=== PATIENT | female | born 1950 | race Caucasian/White ===

== ENCOUNTER 2024-07-01 12:31 | Inpatient (IN) | payer MEDICARE, OTHER ==
[~2024-07-01] VITALS: Ht 162.6 cm; Wt 56.7 kg
[2024-07-01] MEDS ORDERED: CALC-1276 PO (13:28)
[2024-07-01] MEDS ORDERED: FLUT16SP NS (13:28)
[2024-07-01] MEDS ORDERED: FLUT1BLS4 IH (13:28)
[2024-07-01] MEDS ORDERED: MONT10TA33 PO (13:28)
[2024-07-01] MEDS ORDERED: GABA300C PO (13:28)
[2024-07-01] MEDS ORDERED: LAMO100T17 PO ×2 (13:28→19:20)
[2024-07-01] MEDS ORDERED: DULO60CA45 PO (13:28)
[2024-07-01] MEDS ORDERED: DOCU100C36 PO (13:28)
[2024-07-01] MEDS ORDERED: OXYB10TA30 PO (13:28)
[2024-07-01] MEDS ORDERED: CALC1POW43 PO (13:28)
[2024-07-01] MEDS ORDERED: MULT-1045 PO (13:28)
[2024-07-01] MEDS ORDERED: ASPI-495 PO (13:28)
[2024-07-01] MEDS ORDERED: FOLI1TAB94 PO (13:28)
[2024-07-01] MEDS ORDERED: POLYVINYL ALCOHOL OPHT DROPS 15 ML BOTTLE ONE (13:31)
[2024-07-01] MEDS: POLYVINYL ALCOHOL OPHT DROPS 15 ML BOTTLE OP ONE (13:32)
[2024-07-01 13:44] LABS: BASOPHILS # (AUTO) 0.1 K/UL (0.0-0.2); BASOPHILS % (AUTO) 1.2 % (0.0-2.0); EOSINOPHILS # (AUTO) 0.3 K/uL (0.0-0.7); EOSINOPHILS % (AUTO) 4.7 % (0.0-7.0); HEMATOCRIT 38.1 % (31.2-41.9); HEMOGLOBIN 12.8 g/dL (10.9-14.3); LYMPHOCYTES # (AUTO) 1.3 K/uL (0.8-4.8); LYMPHOCYTES % (AUTO) 23.5 % (20.5-51.5); MEAN CORPUSCULAR HEMOGLOBIN 30.2 uug (24.7-32.8); MEAN CORPUSCULAR HGB CONC 34 g/dL (32.3-35.6); MEAN CORPUSCULAR VOLUME 90.3 fL (75.5-95.3); MONOCYTES # (AUTO) 0.3 K/uL (0.1-1.30); MONOCYTES % (AUTO) 6.2 % (0.0-11.0); NEUTROPHILS # (AUTO) 3.6 K/uL (1.8-8.9); NEUTROPHILS % (AUTO) 64.4 % (38.5-71.5); PLATELET COUNT (AUTO) 276 K/uL (179-408); RED BLOOD CELL COUNT(AUTO) 4.22 MIL/uL (3.63-4.92); RED CELL DISTRIBUTION WIDTH 14.8 % (12.3-17.7); WHITE BLOOD COUNT (AUTO) 5.6 K/uL (3.8-11.8)
[2024-07-01 13:48] LABS: DIFFERENTIAL COMMENT 1
[2024-07-01] MEDS ORDERED: NALO4SPR NS (13:51)
[2024-07-01] MEDS ORDERED: CETI10CA8 PO (13:51)
[2024-07-01] MEDS ORDERED: PANT20TA2 PO (13:51)
[2024-07-01] MEDS ORDERED: SIME40DR69 PO (13:51)
[2024-07-01] MEDS ORDERED: PROP10TA10 PO (13:51)
[2024-07-01] MEDS ORDERED: DICL100G31 TP ×2 (13:51→19:20)
[2024-07-01] MEDS ORDERED: MAGN400O6 PO (13:51)
[2024-07-01] MEDS ORDERED: RAME8TAB15 PO (13:51)
[2024-07-01] MEDS ORDERED: ROPI2TAB26 PO (13:51)
[2024-07-01] MEDS ORDERED: ACET325T53 PO ×2 (13:51→19:20)
[2024-07-01] MEDS ORDERED: ICOS1CAP PO (13:51)
[2024-07-01] MEDS ORDERED: QUET50TA PO (13:51)
[2024-07-01] MEDS ORDERED: PROP10DR15 OP (13:51)
[2024-07-01] MEDS ORDERED: QUET25TA PO (13:51)
[2024-07-01] MEDS ORDERED: CHOL-35 PO (13:51)
[2024-07-01] MEDS ORDERED: HYDR-3980 PO (13:51)
[2024-07-01 13:52] LABS: CALCIUM 8.5 mg/dL (8.5-10.1); CARBON DIOXIDE 29 mmol/L (21-32); CHLORIDE 103 mmol/L (98-107); CREATININE 0.9 mg/dL (0.6-1.3); GLUCOSE 104 mg/dL (74-106); POTASSIUM 4.8 mmol/L (3.5-5.1); SODIUM SERUM 137 mmol/L (136-145); UREA NITROGEN, BLOOD 9 mg/dL (7-18)
[2024-07-01 14:05] LABS: ALANINE AMINOTRANSFERASE 17 U/L (14-59); ALBUMIN 3.4 g/dL (3.4-5.0); ALKALINE PHOSPHATASE 89 U/L (50-136); ASPARTATE AMINOTRANSFERASE 15 U/L (15-37); BILIRUBIN,DIRECT 0.1 mg/dL (0.0-0.2); BILIRUBIN,TOTAL 0.5 mg/dL (0.2-1.0); NT-PRO BNP 144 pg/mL (0-125); TOTAL PROTEIN, SERUM 6.6 g/dL (6.4-8.2)
[2024-07-01 14:52] LABS: *BILIRUBIN,URIN NEGATIVE (NEGATIVE); *BLOOD, URINE NEGATIVE (NEGATIVE); *CLARITY,URINE CLEAR (CLEAR); *COLOR,URINE YELLOW (YELLOW); *KETONES,URINE NEGATIVE (NEGATIVE); *PROTEIN,URINE NEGATIVE (NEGATIVE); *UROBILINOGEN,URINE 0.2 E.U./dl (NORMAL); LEUKOCYTE ESTERASE ,URINE 1+ (NEGATIVE); NITRITE, URINE POSITIVE (NEGATIVE); UGLUCOSE NEGATIVE (NEGATIVE)
[2024-07-01] MEDS: ALBUTEROL SULFATE 2.5 MG/3 ML NEBU NEB ONE (14:54)
[2024-07-01] MEDS: IPRATROPIUM BROMIDE 0.5 MG/2.5 ML NEBU NEB ONE (14:54)
[2024-07-01 14:57] VITALS: O2SAT 96
[2024-07-01] MEDS ORDERED: IPRATROPIUM BROMIDE 0.5 MG/2.5 ML NEBU ONE (14:57)
[2024-07-01] MEDS ORDERED: ALBUTEROL SULFATE 2.5 MG/3 ML NEBU ONE (14:57)
[2024-07-01 15:03] LABS: BACTERIA,URINE MANY /HPF (NONE SEEN); RBC,URINE 0-3 /HPF (0-3); SQUAMOUS EPITHELIAL CELL,UR MODERATE /HPF (NONE SEEN)
[2024-07-01 15:12] VITALS: O2SAT 99
[2024-07-01] MEDS ORDERED: methylPREDNISolone SOD SUCC 125 MG/2 ML VIAL ONE (15:14)
[2024-07-01] MEDS: methylPREDNISolone SOD SUCC 125 MG/2 ML VIAL IV ONE (15:18)
[2024-07-01] MEDS ORDERED: ONDANSETRON 4 MG/2 ML VIAL ONE (15:23)
[2024-07-01] MEDS ORDERED: MORPHINE SULFATE 4 MG/1 ML DISP.SYRIN ONE (15:24)
[2024-07-01] MEDS: MORPHINE SULFATE 4 MG/1 ML DISP.SYRIN IV ONE (15:31)
[2024-07-01] MEDS: ONDANSETRON 4 MG/2 ML VIAL IV ONE (15:35)
[2024-07-01 18:11] VITALS: BP 124/64; TEMP 98.4; O2SAT 95
[2024-07-01 19:00] VITALS: BP 132/70; TEMP 98.3; O2SAT 95
[2024-07-01] MEDS ORDERED: CETI10TA18 PO (19:20)
[2024-07-01] MEDS ORDERED: DULO60CA64 PO (19:20)
[2024-07-01] MEDS ORDERED: MAG30ORA PO (19:55)
[2024-07-01] MEDS ORDERED: ALBUTEROL SULFATE 2.5 MG/ 0.5 ML NEBU NEB PRN (20:15)
[2024-07-01] MEDS ORDERED: MAGNESIUM HYDROXIDE 30 ML LIQUID UDC PO PRN (20:15)
[2024-07-01] MEDS ORDERED: IPRATROPIUM BROMIDE 0.5 MG/2.5 ML NEBU NEB PRN (20:15)
[2024-07-01] MEDS ORDERED: ONDANSETRON 4 MG/2 ML VIAL IV PRN (20:15)
[2024-07-01] MEDS ORDERED: CEFTRIAXONE /D5W 50ML IVPB **ER PYXIS IV ONE (20:37)
[2024-07-01] MEDS: MORPHINE SULFATE 2 MG/1 ML DISP.SYRIN IV PRN (20:46)
[2024-07-01] MEDS: CEFTRIAXONE 1 G in IV DEXTROSE 5% 50 ML IV SCH (20:46)
[2024-07-01] MEDS: DOCUSATE SODIUM 250 MG CAPSULE PO SCH (20:46)
[2024-07-01] MEDS: ENOXAPARIN SODIUM 40 MG/0.4 ML DISP.SYRIN SQ SCH (20:53)
[2024-07-01] MEDS: ACETAMINOPHEN 325 MG TABLET PO PRN (21:40)
[2024-07-01] MEDS: TEMAZEPAM 15 MG CAPSULE PO PRN (21:40)
[2024-07-02] VITALS (8 sets, daily range): BP systolic 123–158; BP diastolic 49–85; TEMP 97.9–98.4; O2SAT 94–99
[2024-07-02] MEDS: MAG HYDROX/AL HYDROX/SIMETH 30 ML LIQUID UDC PO PRN (04:44)
[2024-07-02] MEDS ORDERED: ALBUTEROL SULFATE 2.5 MG/3 ML NEBU NEB PRN (05:45)
[2024-07-02] MEDS: PANTOPRAZOLE SODIUM 40 MG TABLET.DR PO SCH (06:40)
[2024-07-02 07:04] LABS: BASOPHILS % (AUTO) 0.3 % (0.0-2.0); HEMATOCRIT 35.3 % (31.2-41.9); HEMOGLOBIN 12.1 g/dL (10.9-14.3); LYMPHOCYTES % (AUTO) 19.4 % (20.5-51.5); MEAN CORPUSCULAR HEMOGLOBIN 30.8 uug (24.7-32.8); MEAN CORPUSCULAR HGB CONC 34 g/dL (32.3-35.6); MEAN CORPUSCULAR VOLUME 89.8 fL (75.5-95.3); MONOCYTES # (AUTO) 0.2 K/uL (0.1-1.30); MONOCYTES % (AUTO) 4.7 % (0.0-11.0); NEUTROPHILS % (AUTO) 75.6 % (38.5-71.5); PLATELET COUNT (AUTO) 263 K/uL (179-408); RED BLOOD CELL COUNT(AUTO) 3.92 MIL/uL (3.63-4.92); RED CELL DISTRIBUTION WIDTH 14.5 % (12.3-17.7); WHITE BLOOD COUNT (AUTO) 5.3 K/uL (3.8-11.8)
[2024-07-02 07:17] LABS: DIFFERENTIAL COMMENT 1
[2024-07-02 07:21] LABS: CARBON DIOXIDE 26 mmol/L (21-32); CHLORIDE 96 mmol/L (98-107); SODIUM SERUM 130 mmol/L (136-145)
[2024-07-02 07:22] LABS: ALANINE AMINOTRANSFERASE 14 U/L (14-59); ALBUMIN 3.3 g/dL (3.4-5.0); ALKALINE PHOSPHATASE 74 U/L (50-136); ASPARTATE AMINOTRANSFERASE 24 U/L (15-37); BILIRUBIN,TOTAL 0.5 mg/dL (0.2-1.0); CALCIUM 8.7 mg/dL (8.5-10.1); CREATININE 0.7 mg/dL (0.6-1.3); GLUCOSE 121 mg/dL (74-106); MAGNESIUM 2.3 mg/dL (1.8-2.4); TOTAL PROTEIN, SERUM 6.7 g/dL (6.4-8.2); UREA NITROGEN, BLOOD 8 mg/dL (7-18)
[2024-07-02 07:23] LABS: THYROID STIMULATING HORMONE 0.381 mIU/mL (0.358-3.740)
[2024-07-02 07:25] LABS: POTASSIUM 5.1 mmol/L (3.5-5.1)
[2024-07-02] MEDS ORDERED: FLUTICASONE/VILANTEROL 1 EACH BLST.W.DEV INH SCH (09:00)
[2024-07-02] MEDS: FLUTICASONE/VILANTEROL 1 EACH BLST.W.DEV INH SCH (09:12)
[2024-07-02 14:15] LABS: CHOLESTEROL 175 mg/dL (<200); HDL CHOLESTEROL 69 mg/dL (40-60); TRIGLYCERIDES 48 MG/DL (30-150)
[2024-07-02] MEDS ORDERED: PROP10DR15 EACHEYE (19:02)
[2024-07-02] MEDS: DOCUSATE SODIUM 100 MG CAPSULE PO SCH (20:42)
[2024-07-02] MEDS: LORAZEPAM 0.5 MG TABLET PO PRN (23:38)
[2024-07-03 06:00] VITALS: BP 161/79; TEMP 98.1; O2SAT 99
[2024-07-03 10:35] VITALS: O2SAT 98
[2024-07-03 11:33] VITALS: BP 158/59; TEMP 97.7; O2SAT 95
[2024-07-03] MEDS: SUMATRIPTAN SUCCINATE 6 MG/0.5 ML VIAL SQ ONE (12:02)
[2024-07-03] MEDS ORDERED: NALOXONE NASAL SPRAY 4 MG SPRAY NS PRN (14:15)
[2024-07-03] MEDS ORDERED: [UNRECOGNIZED DRUG - REMARK] PO PRN (14:15)
[2024-07-03] MEDS ORDERED: MAGNESIUM HYDROXIDE 30 ML LIQUID UDC PO PRN (14:15)
[2024-07-03] MEDS ORDERED: hydrALAZINE HCL 25 MG TABLET PO PRN (15:15)
[2024-07-03] MEDS: DULOXETINE 60 MG CAPSULE.DR PO SCH (15:28)
[2024-07-03] MEDS: ASPIRIN EC 81 MG TABLET.DR PO SCH (15:28)
[2024-07-03] MEDS: VALSARTAN 80 MG TABLET PO SCH (15:28)
[2024-07-03] MEDS ORDERED: OXYB-58 PO (15:30)
[2024-07-03] MEDS ORDERED: CETIRIZINE HCL 10 MG TABLET PO PRN (15:30)
[2024-07-03 15:32] LABS: THYROID STIMULATING HORMONE 1.946 mIU/mL (0.358-3.740)
[2024-07-03 16:00] VITALS: BP 162/73; TEMP 98.3; O2SAT 98
[2024-07-03] MEDS: LAMOTRIGINE 100 MG TABLET PO SCH (16:12)
[2024-07-03] MEDS: QUETIAPINE FUMARATE 25 MG TABLET PO SCH ×2 (16:12→21:23)
[2024-07-03] MEDS: GABAPENTIN 300 MG CAPSULE PO SCH (16:13)
[2024-07-03] MEDS ORDERED: Medication Not On Formulary EA (Icosapent Ethyl (Vascepa) 2 GM) PO SCH (17:00)
[2024-07-03] MEDS ORDERED: GABAPENTIN 300 MG CAPSULE PO SCH (17:00)
[2024-07-03 19:00] VITALS: BP 130/75; TEMP 98; O2SAT 94
[2024-07-03] MEDS ORDERED: Medication Not On Formulary EA (Ramelteon (Rozerem) 8 MG) PO SCH (21:00)
[2024-07-03] MEDS ORDERED: OXYBUTYNIN CHLORIDE 5 MG TABLET PO SCH (21:00)
[2024-07-03] MEDS ORDERED: Medication Not On Formulary EA (Quetiapine Fumarate (Seroquel) 50 MG) PO SCH (21:00)
[2024-07-03] MEDS: MONTELUKAST SODIUM 10 MG TABLET PO SCH (21:22)
[2024-07-03] MEDS: ropiniROLE 1 MG TABLET PO SCH (21:25)
[2024-07-03] MEDS: HYDROCODONE/APAP 10-325 MG TABLET PO PRN (21:43)
[2024-07-04 03:44] VITALS: O2SAT 98
[2024-07-04 05:18] LABS: *AMPHETAMINE, URINE NEGATIVE (NEGATIVE); *BARBITURATE, URINE NEGATIVE (NEGATIVE); *BENZODIAZEPINE, URINE NEGATIVE (NEGATIVE); *CANNABINOID, URINE NEGATIVE (NEGATIVE); *COCCAINE, URINE NEGATIVE (NEGATIVE); *OPIATE, URINE POSITIVE (NEGATIVE); *PHENCYCLIDINE SCREEN,URINE NEGATIVE (NEGATIVE); FENTANYL, URINE NEGATIVE (NEGATIVE)
[2024-07-04 06:00] VITALS: BP 101/43; TEMP 98.3; O2SAT 95
[2024-07-04 07:08] LABS: BASOPHILS # (AUTO) 0.1 K/UL (0.0-0.2); BASOPHILS % (AUTO) 0.7 % (0.0-2.0); EOSINOPHILS # (AUTO) 0.2 K/uL (0.0-0.7); EOSINOPHILS % (AUTO) 3.2 % (0.0-7.0); HEMOGLOBIN 14.2 g/dL (10.9-14.3); LYMPHOCYTES # (AUTO) 2.1 K/uL (0.8-4.8); LYMPHOCYTES % (AUTO) 26.6 % (20.5-51.5); MEAN CORPUSCULAR HEMOGLOBIN 30.5 uug (24.7-32.8); MEAN CORPUSCULAR HGB CONC 34 g/dL (32.3-35.6); MEAN CORPUSCULAR VOLUME 90.4 fL (75.5-95.3); MONOCYTES # (AUTO) 0.7 K/uL (0.1-1.30); MONOCYTES % (AUTO) 9.6 % (0.0-11.0); NEUTROPHILS # (AUTO) 4.6 K/uL (1.8-8.9); NEUTROPHILS % (AUTO) 59.9 % (38.5-71.5); PLATELET COUNT (AUTO) 286 K/uL (179-408); RED BLOOD CELL COUNT(AUTO) 4.64 MIL/uL (3.63-4.92); WHITE BLOOD COUNT (AUTO) 7.7 K/uL (3.8-11.8)
[2024-07-04 07:27] LABS: DIFFERENTIAL COMMENT 1
[2024-07-04 07:33] LABS: CALCIUM 8.6 mg/dL (8.5-10.1); CARBON DIOXIDE 27 mmol/L (21-32); CHLORIDE 97 mmol/L (98-107); GLUCOSE 99 mg/dL (74-106); MAGNESIUM 2.4 mg/dL (1.8-2.4); PHOSPHOROUS 3.5 mg/dL (2.5-4.9); POTASSIUM 3.7 mmol/L (3.5-5.1); SODIUM SERUM 133 mmol/L (136-145); UREA NITROGEN, BLOOD 14 mg/dL (7-18)
[2024-07-04] MEDS ORDERED: Medication Not On Formulary EA (Multivitamin (Multi-Vitamin Daily) 1 EACH) PO SCH (09:00)
[2024-07-04] MEDS ORDERED: Medication Not On Formulary EA (Oxybutynin Chloride (Oxybutynin Chloride Er) 10 MG) PO SCH (09:00)
[2024-07-04] MEDS: CALCIUM CARB/VITAMIN D 500MG-200UNITS TABLET PO SCH (09:24)
[2024-07-04] MEDS: FOLIC ACID 1 MG TABLET PO SCH (09:25)
[2024-07-04] MEDS: OXYBUTYNIN XL 5 MG TABSR PO SCH (09:27)
[2024-07-04] MEDS: CHOLECALCIFEROL 1,000 UNIT TABLET PO SCH (09:27)
[2024-07-04] MEDS: MULTIVITAMINS,THERAPEUTIC TABLET PO SCH (09:27)
[2024-07-04 11:26] VITALS: BP 145/67; TEMP 97.8; O2SAT 100
[2024-07-04] MEDS ORDERED: DIPHENOXYLATE HCL/ATROP SULF TABLET PO PRN (12:00)
[2024-07-04 16:05] VITALS: BP 101/59; TEMP 97.6; O2SAT 95
[2024-07-04] MEDS: LOPERAMIDE HCL 2 MG CAPSULE PO PRN (17:35)
[2024-07-04 20:00] VITALS: BP 97/45; TEMP 97.8; O2SAT 95
[2024-07-04 20:42] VITALS: O2SAT 96
[2024-07-05 06:00] VITALS: BP 115/56; TEMP 98; O2SAT 95
[2024-07-05 07:56] VITALS: BP 146/69; TEMP 97.2; O2SAT 97
[2024-07-05] MEDS ORDERED: ASPI-618 PO (14:19)
[2024-07-05 15:47] VITALS: BP 117/62; TEMP 97.8; O2SAT 95
[2024-07-05 20:00] VITALS: BP 121/63; TEMP 97.6; O2SAT 95
[2024-07-05] MEDS: NITROFURANTOIN/NITROFURAN MAC 100 MG CAPSULE PO SCH (21:38)
[2024-07-06 01:45] VITALS: O2SAT 96
[2024-07-06 06:00] VITALS: BP 136/64; TEMP 97.9; O2SAT 95
[2024-07-06] MEDS: ENSURE ENLIVE (VAN) 240 ML LIQUID PO SCH (09:18)
[2024-07-06 11:49] VITALS: BP 120/62; TEMP 97.3; O2SAT 95
== END 2024-07-06 12:40 | DRG 191 ==
LOC: ER 12:31 → TELE3 17:31 → MEDSURG3 07-02 15:50 → MEDSURG1 07-04 11:50
PROVIDERS: ADMIT Internal Medicine; ATTEND Internal Medicine
DX: J44.1 Chronic obstructive pulmonary disease with (acute) exacerbation (principal); D68.59 Other primary thrombophilia; G91.2 (Idiopathic) normal pressure hydrocephalus; N39.0 Urinary tract infection, site not specified; E87.1 Hypo-osmolality and hyponatremia; E78.5 Hyperlipidemia, unspecified; E11.319 Type 2 diabetes mellitus with unspecified diabetic retinopathy without macular edema; H40.9 Unspecified glaucoma; F25.0 Schizoaffective disorder, bipolar type; E11.51 Type 2 diabetes mellitus with diabetic peripheral angiopathy without gangrene; R00.1 Bradycardia, unspecified; T44.7X5A Adverse effect of beta-adrenoreceptor antagonists, initial encounter; B96.20 Unspecified Escherichia coli [E. coli] as the cause of diseases classified elsewhere; Y92.099 Unspecified place in other non-institutional residence as the place of occurrence of the external cause; M15.9 Polyosteoarthritis, unspecified; G24.01 Drug induced subacute dyskinesia; T43.505A Adverse effect of unspecified antipsychotics and neuroleptics, initial encounter; F41.9 Anxiety disorder, unspecified; K59.03 Drug induced constipation; T40.2X5A Adverse effect of other opioids, initial encounter; I10 Essential (primary) hypertension; M81.0 Age-related osteoporosis without current pathological fracture; J30.9 Allergic rhinitis, unspecified; K21.9 Gastro-esophageal reflux disease without esophagitis; E11.36 Type 2 diabetes mellitus with diabetic cataract; Z87.891 Personal history of nicotine dependence; Z86.69 Personal history of other diseases of the nervous system and sense organs; Z85.828 Personal history of other malignant neoplasm of skin; G25.81 Restless legs syndrome; Z79.51 Long term (current) use of inhaled steroids; Z79.82 Long term (current) use of aspirin; Z74.09 Other reduced mobility; Z79.899 Other long term (current) drug therapy; R09.02 Hypoxemia
CPT/HCPCS: 36415; 70450; 71045; 83605; 83735; 84100; 84443; 84484; 85025; 85730; 87040; 87077; 87086; 94760; C1758; G0378; J0696; J1650; J2270; J2405; J2919; J3030; J3590; J7040